=== PATIENT | male | born 1945 | race Hispanic/Latino ===

== ENCOUNTER 2023-10-09 15:04 | Outpatient (CLI) | payer OTHER, MEDICAID | END 2023-10-09 15:05 | disposition home or self-care (01) | LOC: CSHRAD 15:04 | PROVIDERS: ATTEND Physician Assistant | DX: S22.079D Unspecified fracture of T9-T10 vertebra, subsequent encounter for fracture with routine healing (principal); M47.814 Spondylosis without myelopathy or radiculopathy, thoracic region | CPT/HCPCS: 72070 ==

== ENCOUNTER 2023-11-13 14:33 | Outpatient (CLI) | payer OTHER, MEDICARE | END 2023-11-13 14:34 | disposition home or self-care (01) | LOC: CSHRAD 14:33 | PROVIDERS: ATTEND Physician Assistant | DX: S22.008D Other fracture of unspecified thoracic vertebra, subsequent encounter for fracture with routine healing (principal); M47.814 Spondylosis without myelopathy or radiculopathy, thoracic region | CPT/HCPCS: 72072 ==